=== PATIENT | female | born 1975 | race American Indian/Alaskan Native ===

== ENCOUNTER 2020-05-21 16:31 | Emergency (ER) | payer SELFPAY ==
[2020-05-21] MEDS ORDERED: Ondansetron 4 MG/2 ML SDV IVPUSH ONE (16:49)
[2020-05-21] MEDS ORDERED: Ketorolac 30 MG/ML SDV IVPUSH ONE (16:49)
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
[2020-05-21] MEDS ORDERED: Sodium Chloride 0.9% 1,000 ML IV SCH (17:00)
[2020-05-21] MEDS ORDERED: HYDROmorphone 0.5 MG/0.5 ML Syringe IVPUSH ONE ×2 (17:49→18:32)
--- NOTE | 2020-05-21 18:08 | CRLCT ---
INDICATION: severe rt sided facial pain CT FACE WITHOUT CONTRAST TECHNIQUE: Multidetector axial CT imaging was performed through the face without contrast. Coronal and sagittal reconstructions were generated. FINDINGS: No acute fractures are identified. The orbits and their contents are within normal limits. The paranasal sinuses are normally aerated aside from a small amount of mucosal thickening in an anterior left ethmoid air cell. The mandible and temporomandibular joints are intact. Mastoid air cells are clear. IMPRESSION: No fracture or other acute finding. JOHANNE WHITTAKER MD [employer] [employer] Dictated by Baudilio Whittaker MD @ 05/21/2020 6:07:52 PM Dictated by: Baudilio Whittaker MD @ 05/21/2020 18:08:16 (Electronically Signed)
--- NOTE | 2020-05-21 18:19 | CRLCT ---
INDICATION: severe rt sided head pain CT HEAD WITHOUT CONTRAST TECHNIQUE: Multiple axial CT images were performed through the head without intravenous contrast administration. COMPARISON: No previous studies are currently available for comparison. FINDINGS: A small acute subdural hematoma is seen over the lateral right frontoparietal convexity, measuring 5 millimeters in maximum thickness. There is no significant mass effect or midline shift. Ventricles are normal in size and configuration. Brain parenchyma appears normal with unremarkable izaguirre-white differentiation. Osseous structures are within normal limits and no fractures are seen. Included portions of the paranasal sinuses and mastoid air cells are normally aerated. IMPRESSION: Small acute subdural hematoma over the right frontoparietal convexity measuring 5 millimeters in thickness. No significant mass effect or midline shift. Results were called to Dr. Contreras at 6:10 p.m. on 05/21/2020. JOHANNE WHITTAKER MD [facility] Dictated by Baudilio Whittaker MD @ 05/21/2020 6:16:18 PM Dictated by: Baudilio Whittaker MD @ 05/21/2020 18:17:02 (Electronically Signed)
== END 2020-05-21 20:01 | disposition home or self-care (01) ==
LOC: JP.ED 16:31
DX: S06.5X9A Traumatic subdural hemorrhage with loss of consciousness of unspecified duration, initial encounter (principal); Z88.8 Allergy status to other drugs, medicaments and biological substances; V89.2XXA Person injured in unspecified motor-vehicle accident, traffic, initial encounter
CPT/HCPCS: 36415; 70450; 70486; 80048; 80305; 85025; 96374; 96375; 96376; 99285; J1170; J1885; J7030